=== PATIENT | female | born 1995 | race Caucasian/White ===

== ENCOUNTER 2018-07-29 09:52 | Emergency (ER) | payer MEDICAID, OTHER ==
[~2018-07-29] VITALS: Ht 162.6 cm; Wt 65.0 kg
[2018-07-29 10:15] VITALS: BP 122/56
[2018-07-29] MEDS ORDERED: AZIT250T PO (11:32)
[2018-07-29] MEDS ORDERED: BENZ-16 PO (11:32)
== END 2018-07-29 11:42 | disposition home or self-care (01) ==
LOC: ER 09:54
DX: J06.9 Acute upper respiratory infection, unspecified (principal); L53.8 Other specified erythematous conditions
CPT/HCPCS: 99283

== ENCOUNTER 2020-01-09 21:45 | Emergency (ER) | payer MEDICAID, OTHER ==
[~2020-01-09] VITALS: Ht 165.1 cm; Wt 68.2 kg
[~2020-01-09 21:45] MED LIST: AZIT250T PO
[2020-01-09] MEDS ORDERED: metoclopramide 5 mg/ml inj IV ONE (22:20)
[2020-01-09] MEDS ORDERED: diphenhydrAMINE 50 mg/ml inj IV ONE (22:20)
[2020-01-09] MEDS: dextrose 5%-normal saline 1,000 ML IV SCH ×2 (22:38→23:20)
[2020-01-09 22:41] LABS: CLARITY,URINE CLOUDY (Clear); COLOR,URINE YELLOW (Yellow); GLUCOSE, URINE NEGATIVE (Neg); KETONES,URINE NEGATIVE (Neg); LEUKOCYTE ESTERASE ,URINE NEGATIVE (Neg); NITRITES, URINE NEGATIVE (Neg); OCCULT BLOOD,URINE NEGATIVE (Neg); PROTEIN,URINE NEGATIVE (Neg); UROBILINOGEN,URINE 0.2 E.U/dL (0.2-1.0)
[2020-01-09 22:42] LABS: UA COLLECTION TYPE CLN CATCH MIDSTREAM
[2020-01-09 22:50] LABS: BACTERIA,URINE NONE SEEN /HPF (Neg); RBC,URINE NONE SEEN /HPF (0-2); WBC,URINE 0-4 /HPF (0-4)
[2020-01-09 22:51] LABS: AMORPHOUS PHOSPHATES 3+; MUCUS STRANDS MANY /LPF (Neg); SQUAMOUS EPITHELIAL CELL,UR MANY /LPF (FEW)
[2020-01-09 23:23] LABS: ALBUMIN 3.5 G/DL (3.4-5.0); ANION GAP 9 (8-16); BLOOD UREA NITROGEN 11 MG/DL (7-18); BUN/CREATININE RATIO 15.1 (6.6-38.0); CALCIUM 9.4 MG/DL (8.5-10.1); CHLORIDE 104 MMOL/L (99-107); CREATININE 0.73 MG/DL (0.40-0.90); GLUCOSE 82 MG/DL (70-104); POTASSIUM 3.9 MMOL/L (3.5-5.1); SODIUM 139 MMOL/L (135-145); TOTAL CARBON DIOXIDE 26.5 MMOL/L (24-32); eGFR > 90 ML/MIN
[2020-01-09 23:24] LABS: BETA HCG,QUANTITATIVE 49763 mIU/ml
[2020-01-09] MEDS ORDERED: DOXY1TAB3 PO (23:51)
[2020-01-10 00:35] VITALS: BP 121/72
== END 2020-01-10 00:37 | disposition left against medical advice (07) ==
LOC: ER 21:46
DX: O21.9 Vomiting of pregnancy, unspecified (principal); R53.1 Weakness; R10.84 Generalized abdominal pain; Z3A.01 Less than 8 weeks gestation of pregnancy; Z79.2 Long term (current) use of antibiotics; Z79.899 Other long term (current) drug therapy
CPT/HCPCS: 36415; 76801; 80048; 81001; 84702; 93976; 96361; 96374; 96375; 99284; J1200; J2765; J7042; 99283; 99285